=== PATIENT | female | born 1955 | race Caucasian/White ===

== ENCOUNTER → 2023-12-21 14:31 | Outpatient (REF) | payer MEDICARE, SELFPAY | LOC: WDC 14:31 | PROVIDERS: ATTENDING PHYSICIAN Nurse Practitioner | DX: R92.8 Other abnormal and inconclusive findings on diagnostic imaging of breast (principal) | CPT/HCPCS: 76642 ==

== ENCOUNTER → 2024-05-31 13:58 | Outpatient (REF) | payer MEDICARE, SELFPAY | LOC: HWRAD 13:58 | PROVIDERS: ATTENDING PHYSICIAN Podiatrist Foot & Ankle Surgery | DX: M20.42 Other hammer toe(s) (acquired), left foot (principal) | CPT/HCPCS: 71046 ==

== ENCOUNTER → 2024-07-09 13:41 | Outpatient (REF) | payer MEDICARE, SELFPAY | LOC: WDC 13:41 | DX: R92.8 Other abnormal and inconclusive findings on diagnostic imaging of breast (principal) | CPT/HCPCS: 76642 ==

== ENCOUNTER → 2024-08-02 11:02 | Outpatient (REF) | payer MEDICARE, SELFPAY | LOC: HWWDC 11:02 | DX: Z12.31 Encounter for screening mammogram for malignant neoplasm of breast (principal) | CPT/HCPCS: 77063; 77067 ==

== ENCOUNTER → 2024-09-19 11:03 | Outpatient (REF) | payer MEDICARE, SELFPAY | LOC: HWRAD 11:03 | PROVIDERS: ATTENDING PHYSICIAN Internal Medicine Rheumatology | DX: M05.79 Rheumatoid arthritis with rheumatoid factor of multiple sites without organ or systems involvement (principal); M81.0 Age-related osteoporosis without current pathological fracture | CPT/HCPCS: 77080 ==

== ENCOUNTER → 2025-01-07 13:54 | Outpatient (REF) | payer MEDICARE, SELFPAY | LOC: WDC 13:54 | DX: R92.8 Other abnormal and inconclusive findings on diagnostic imaging of breast (principal) | CPT/HCPCS: 76642 ==